=== PATIENT | male | born 1995 | race Caucasian/White ===

== ENCOUNTER 2019-03-15 16:18 | Emergency (ER) | payer OTHER ==
[2019-03-15 16:27] VITALS: BP 114/75; PULSE 63; TEMP 98.6; BMI 24.3
--- NOTE | 2019-03-15 16:27 | PDOC ---
Rapid Medical Evaluation Time Seen by Provider: 03/15/19 16:25 Medical Evaluation: Allergies Allergy/AdvReac Type Severity Reaction Status Date / Time No Known Allergies Allergy Verified 12/01/15 12:27 03/15/19 16:25 This patient had a brief in-person evaluation in triage CC:swelling of left 4th digit x 4 days, denies fever, or chills PE: NAD left 4th digit with swelling around nail bed, pus seen under skin on lateral side orders: This patient will proceed to the ED for further evaluation Discharge Disposition - Diagnosis Paronychia - Referrals - Patient Instructions - Post Discharge Activity
[2019-03-15] MEDS ORDERED: LIDOCAINE HCL 1%, 10 MG/ML (20ML VIAL) ONE (17:03)
[2019-03-15] MEDS ORDERED: LIDOCAINE HCL 1%, 10 MG/ML (50 mL VIAL) SQ ONE (17:03)
--- NOTE | 2019-03-15 17:18 | PDOC ---
History of Present Illness - General Chief Complaint: Pain Stated Complaint: LT RING FINGER INFECTED Time Seen by Provider: 03/15/19 16:25 - History of Present Illness Initial Comments: 03/15/19 17:15 23-year-old male without comorbidities presents for evaluation of left fourth finger pain and swelling 4 days without any precipitating traumatic event. He states she did have a hangnail which he removed. He does not bite his fingernails. Since that time he's had pain and swelling. No drainage Past History - Past Medical History Allergies/Adverse Reactions: Allergies Allergy/AdvReac Type Severity Reaction Status Date / Time No Known Allergies Allergy Verified 03/15/19 16:27 Home Medications: Ambulatory Orders Albuterol Sulfate [Proventil HFA Inhaler -] 1 - 2 inh PO QID #1 inhaler Azithromycin [Zithromax -] 250 mg PO UTDICT #6 tab 12/01/15 Cephalexin [Keflex] 500 mg PO QID #28 capsule 03/15/19 Sulfamethoxazole/Trimethoprim [Bactrim Ds -] 1 tab PO BID #14 tablet 03/15/19 COPD: No - Immunization History Immunization Up to Date: Yes - Suicide/Smoking/Psychosocial Hx Smoking History: Never smoked Information on smoking cessation initiated: No Hx Alcohol Use: No Drug/Substance Use Hx: No Review of Systems - Review of Systems Constitutional: No: Fever Musculoskeletal: Yes: See HPI *Physical Exam - Vital Signs Last Vital Signs Temp Pulse Resp BP Pulse Ox 98.6 F 63 19 114/75 100 03/15/19 16:25 03/15/19 16:25 03/15/19 16:25 03/15/19 16:25 03/15/19 16:25 - Physical Exam Comments: 03/15/19 17:15 There is erythema fluctuance warmth and sensitivity at the ulnar aspect of the nail fold without gross sensorimotor deficits. ED Treatment Course - Medications Given in the ED: ED Medications Discontinued Medications Generic Name Dose Route Start Last Admin Trade Name Freq PRN Reason Stop Dose Admin Lidocaine HCl 20 ml 03/15/19 17:03 03/15/19 17:09 Xylocaine 1% SQ 03/15/19 17:04 20 ml ONCE ONE Administration Medical Decision Making - Medical Decision Making 03/15/19 17:16 Under aseptic technique a digital block was introduced. The wound was incised with an 11 blade purulent drainage was expressed sent for culture and dry sterile dressing was placed. The wound was irrigated using normal saline. *DC/Admit/Observation/Transfer Diagnosis at time of Disposition: Paronychia - Discharge Dispostion Disposition: HOME Condition at time of disposition: Stable Decision to Admit order: No - Referrals Referrals: Dillon Henry MD [Staff Physician] - - Patient Instructions Printed Discharge Instructions: YUSUF Murry for Paronychia Additional Instructions: Keep the dressing on for the next 48 hours. Please take the prophylactic antibiotics as directed. In 48 hours return to the emergency room for a wound check. Follow-up with hand surgery in 2-3 days should she require further treatment. You must take and finish the antibiotics as directed. Please take Tylenol and Motrin as directed for pain. Return to the emergency room sooner should you have further issues. - Post Discharge Activity
== END 2019-03-15 17:30 | disposition home or self-care (01) ==
LOC: JERFT 16:18
PROC: 0H9QXZZ Drainage of Finger Nail, External Approach (ICD-10-PCS; principal; 2019-03-15)
DX: L03.012 Cellulitis of left finger (principal)
CPT/HCPCS: 10060; 87070; 87205; 99282-25

== ENCOUNTER 2022-10-01 13:27 | Emergency (ER) | payer OTHER ==
[2022-10-01 14:07] VITALS: BP 121/58; PULSE 78; RESP 18; TEMP 97.9; BMI 23.7
[2022-10-01] MEDS ORDERED: SODIUM CHLORIDE 1,000 ML IV STA (14:09)
[2022-10-01 15:17] LABS: BASO % 0.5 % (0-2.0); EOS % 2.9 % (0-4.5); HEMATOCRIT 45.6 % (35.4-49); HEMOGLOBIN 15.8 GM/dL (11.7-16.9); LYMPH % 24.1 % (8-40); MCH 31.9 pg (25.7-33.7); MCHC 34.6 g/dl (32.0-35.9); MEAN PLT VOLUME 8.5 fl (7.5-11.1); NEUT % 62.5 % (42.8-82.8); PLATELET COUNT 152 10^3/uL (134-434); RBC 4.95 M/mm3 (4.00-5.60); RDW 12.8 % (11.9-15.9); WHITE BLOOD COUNT 6.1 K/mm3 (4.0-10.0)
[2022-10-01 15:41] LABS: CALCIUM 9.4 mg/dL (8.5-10.1)
[2022-10-01 15:45] LABS: CREATININE 1.2 mg/dL (0.55-1.3)
[2022-10-01 15:46] LABS: BILIRUBIN,TOTAL 0.4 mg/dL (0.2-1); TOT PROT 7.4 g/dl (6.4-8.2)
[2022-10-01 16:27] LABS: ERYTHROCYTE SEDIMENTATION RATE 4 mm/hr (0-10)
== END 2022-10-01 15:20 | disposition home or self-care (01) ==
LOC: JER 13:27
DX: R21 Rash and other nonspecific skin eruption (principal)
CPT/HCPCS: 36415; 80053; 85025; 85651; 99284-25

== ENCOUNTER 2023-07-09 21:21 | Emergency (ER) | payer OTHER ==
[2023-07-09 21:28] VITALS: BMI 23.8
[2023-07-09 21:49] VITALS: BP 123/63; PULSE 80; RESP 16; TEMP 98.8
[2023-07-09] MEDS ORDERED: IBUPROFEN 600 MG TABLET (FP) PO ONE ×2 (22:48→22:54)
== END 2023-07-09 23:14 | disposition home or self-care (01) ==
LOC: FER 21:21
DX: H92.02 Otalgia, left ear (principal); R50.9 Fever, unspecified; J02.9 Acute pharyngitis, unspecified; H66.92 Otitis media, unspecified, left ear
CPT/HCPCS: 87651; 99283-25